=== PATIENT | male | born 1955 | race Caucasian/White ===

== ENCOUNTER 2017-11-21 13:24 | Emergency (ER) | payer MEDICARE, OTHER, SELFPAY | END 2017-11-21 15:37 | disposition home or self-care (01) | PROVIDERS: Emergency Provider Internal Medicine; Visit Provider Internal Medicine | DX: J45.41 Moderate persistent asthma with (acute) exacerbation (principal); J40 Bronchitis, not specified as acute or chronic | CPT/HCPCS: 71020; 71046; 94150; 94640; 99283; J7613 ==